=== PATIENT | female | born 1980 | race Caucasian/White ===

== ENCOUNTER 2022-10-22 16:05 | Outpatient (CLI) | payer BC, SELFPAY ==
[2022-10-22 17:00] LABS: SARS-CoV-2 RNA PCR Negative
[2022-10-24 06:04] LABS: Influenza A QL RT-PCR Negative (Negative); Influenza B QL RT-PCR Negative (Negative)
== END 2022-10-22 16:06 | disposition home or self-care (01) ==
LOC: ANHLAB 16:07
PROVIDERS: PCP Family Medicine; Visit Provider Family Medicine
DX: J02.9 Acute pharyngitis, unspecified (principal); Z20.822 Contact with and (suspected) exposure to COVID-19
CPT/HCPCS: 87502; U0003; U0005

== ENCOUNTER 2022-10-23 19:31 | Emergency (ER) | payer BC, SELFPAY ==
[2022-10-23 19:38] VITALS: BP 122/78; PULSE 91; RESP 18; TEMP 36.3; O2SAT 96
--- NOTE | 2022-10-23 20:11 | PC.NURSE ---
Pt and family came up to intake desk and reported that PCP called them while in lobby and was sending prescriptions in at this time so pt is going to leave. Pt and family told to come back if any issues occur to come back. PT ambulatory out of ED lobby at this time.
== END 2022-10-23 20:30 | disposition left against medical advice (07) ==
PROVIDERS: PCP Family Medicine
DX: R05.9 Cough, unspecified (principal)
CPT/HCPCS: 99199

== ENCOUNTER 2022-10-25 18:24 | Emergency (ER) | payer BC, SELFPAY ==
[2022-10-25 18:32] VITALS: BP 127/79; PULSE 100; RESP 20; TEMP 36.6; O2SAT 97
--- NOTE | 2022-10-25 19:03 | ED.URI ---
HPI - URI/Sore Throat General Chief Complaint: Upper Respiratory Infection Stated Complaint: sore throat Source: patient and RN notes reviewed History of Present Illness HPI Narrative: 41-year-old female presents to urgent care with complaints of a sore throat since Wednesday. Patient states she was seen at her primary care physician's office on and tested negative for strep, COVID, and flu. Patient was given steroids and tramadol with minimal relief. Patient states she did have some ear pain or URI symptoms that have resolved but her throat remains sore. Patient reports pain with talking and eating. Denies any vomiting, diarrhea, fevers chest pain, shortness of breath. Patient has been taking ibuprofen without relief. Related Data Home Medications Medication Instructions Recorded Confirmed alprazolam 0.25 mg tablet (Xanax) 0.25 mg PO QHS PRN Anxiety 12/17/21 10/25/22 calcipotriene 0.005 % topical cream 1 applic topical DAILY 12/17/21 10/25/22 clobetasol 0.05 % topical cream 1 applic topical DAILY 12/17/21 10/25/22 sertraline 100 mg tablet (Zoloft) 200 mg PO DAILY 12/17/21 10/25/22 zolpidem 5 mg tablet (Ambien) 5 mg PO QHS PRN Insomnia 12/17/21 10/25/22 Allergies Allergy/AdvReac Type Severity Reaction Status Date / Time erythromycin base Allergy Severe Extreme Verified 10/25/22 18:33 vomiting Penicillins Allergy Mild Childhood Verified 10/25/22 18:33 Allergy Review of Systems Review of Systems: GENERAL: Denies fever, chills or decreased activity EYES: Denies any eye discharge or redness. ENT: Reports throat pain RESP: Denies any cough, wheezing, or difficulty breathing CARDIOVASCULAR: Denies any rapid heart rate or cool extremities ABDOMINAL: Denies any vomiting, diarrhea, or poor feeding : Denies any dysuria, decreased urine frequency SKIN: Denies any lesions, rashes, bruises MUSCULOSKELETAL: Denies any extremity disuse or swelling NEURO: Denies any lethargy, irritability All other systems reviewed are negative, except as documented in HPI. FOR[facility]LY [facility] Past Medical History Medical History Anxiety PCOS (polycystic ovarian syndrome) Family History Family History Other Diabetes mellitus Hypertension Depression Heart disease Family history of dementia Social History Social History Smoking status: Never smoker Alcohol intake: current Substance use: never Comments At the time of my signature, I reviewed and agree with the nursing past medical, surgical, social, and family history. There is no relevant family history pertinent to the patient complaint. Exam Narrative: GENERAL APPEARANCE: The patient is a well-developed, well-nourished child who is awake, active. Interacts appropriately with surroundings and examiner, in no acute distress. SKIN: Skin is warm and dry without erythema, swelling or exudate. There is good turgor. No tenting. HEAD: Atraumatic. Normocephalic. No temporal or scalp tenderness. EYES: Moist and bright. Sclera and conjunctivae normal. No discharge. PERRLA. Extraocular motions intact. Gross visual acuity intact. EARS: Pinna is normal shape and contour. Clear external auditory canals. TM pearly [place] with good cone of light, no erythema or suppuration. No gross hearing deficit. NOSE: pink, moist mucosa with good air movement. No rhinorrhea or nasal flaring. Septum midline. Mouth: moist mucous membranes. THROAT; posterior pharynx erythema and exudate. Uvula midline. Normal movement of soft palate. NECK: Supple and nontender with full range of motion without discomfort. No meningeal signs. LUNGS: Equal and bilateral breath sounds without wheezes, rales or rhonchi. CHEST: The chest wall is without retractions or use of accessory muscles. HEART: Has a regular rate and rhythm without murmur, gallops, c
== END 2022-10-25 19:25 | disposition home or self-care (01) ==
PROVIDERS: Emergency Provider Nurse Practitioner Family; PCP Family Medicine
DX: J02.9 Acute pharyngitis, unspecified (principal)
CPT/HCPCS: 36416; 86308; 87081; 87880; 99213; G0463